=== PATIENT | male | born 1960 | race African-American/Black ===

== ENCOUNTER 2016-11-04 01:07 | Emergency (ER) | payer OTHER ==
[~2016-11-04] VITALS: Ht 175.3 cm; Wt 64.0 kg
[~2016-11-04 01:07] MED LIST: ASPI-1035 PO; CARV25TA47 PO; CLOP75TA2 PO; DIAZ5TAB4 PO; FAMO20TA8 PO; FOLI-43 PO; FURO80TA87 PO; IBUP-1510 PO; KDUR10 PO; LISI-650 PO; NITR0.4T3 PO
[2016-11-04] MEDS ORDERED: MORPHINE SULFATE 4 MG/ML CPJ (NOT FOR IM USE) IV ONE (02:15)
[2016-11-04] MEDS ORDERED: ONDANSETRON HCL 4MG/2ML VIAL IV ONE (02:15)
[2016-11-04 02:42] LABS: HEMATOCRIT. 29.1 % (42.0-52.0); HEMOGLOBIN. 9.4 g/dL (14.0-18.0); MEAN CORPUSCULAR HEMOGLOBIN 29.4 pg (28.0-32.0); MEAN CORPUSCULAR HGB CONC 32.4 g/dL (31.0-37.0); MEAN CORPUSCULAR VOLUME 90.8 fL (80.0-94.0); MEAN PLATELET VOLUME 7.3 fl (7.4-10.4); PLATELET 281 x1000/uL (130-400); WHITE BLOOD COUNT 2.8 x1000/uL (4.5-11.0)
[2016-11-04 02:45] LABS: DIFFERENTIAL COMMENT 1
[2016-11-04 02:50] LABS: ALBUMIN 3.2 g/dL (3.4-5.0); ANION GAP 15; CALCIUM 8.2 mg/dL (8.5-10.1); CARBON DIOXIDE 22 mEq/L (21-32); CHLORIDE 112 mEq/L (98-107); INDEX HEMOLYSI 2 (1-3); INDEX ICTERIC 1 (1-4); INDEX LIPEMIC 1 (1-3); LIPASE 120 IU/L (73-393); UREA NITROGEN BLOOD 9 mg/dL (7-21)
[2016-11-04 03:01] LABS: ALANINE AMINOTRANSFERASE 39 IU/L (13-61); eGFR > 60 mL/min (>60)
[2016-11-04 03:28] LABS: HYPOCHROMASIA 1+; PLATELET ESTIMATE NORMAL
[2016-11-04 03:29] LABS: ANISOCYTOSIS 1+
[2016-11-04 06:01] VITALS: BP 127/76
== END 2016-11-04 06:02 | disposition home or self-care (01) ==
LOC: ER 01:14
DX: R07.89 Other chest pain (principal); I10 Essential (primary) hypertension; E78.00 Pure hypercholesterolemia, unspecified; I50.9 Heart failure, unspecified; F17.200 Nicotine dependence, unspecified, uncomplicated; R56.9 Unspecified convulsions; I25.2 Old myocardial infarction; Z95.5 Presence of coronary angioplasty implant and graft; Z95.0 Presence of cardiac pacemaker; Z79.82 Long term (current) use of aspirin; Z88.8 Allergy status to other drugs, medicaments and biological substances
CPT/HCPCS: 36415; 71010; 80053; 83690; 84484; 85025; 93005; 96374; 96375; 99285; J2270; J2405

== ENCOUNTER 2017-02-04 00:40 | Inpatient (IN) | payer OTHER ==
[~2017-02-04] VITALS: Ht 175.3 cm; Wt 63.2 kg
[~2017-02-04 00:40] MED LIST changes: -ASPI-1035 PO; +ASPI-1159 PO; +CLOP75TA16 PO; -CLOP75TA2 PO; -IBUP-1510 PO; +IBUP-2030 PO; -NITR0.4T3 PO; +NITR0.4T49 PO
[2017-02-04] MEDS ORDERED: MORPHINE SULFATE 4 MG/ML CPJ (NOT FOR IM USE) IV STA (01:14)
[2017-02-04] MEDS ORDERED: ONDANSETRON HCL 4MG/2ML VIAL IV STA (01:14)
[2017-02-04] MEDS ORDERED: NITROGLYCERIN OINT 1GM/INCH UDPKT TD ONE (01:15)
[2017-02-04 01:37] LABS: BASOPHILS % 0.9 % (0.0-2.0); EOSINOPHILS % 1.5 % (0.0-5.0); HEMATOCRIT. 30.5 % (42.0-52.0); LYMPHOCYTES % 33.5 % (20.0-50.0); MEAN CORPUSCULAR HEMOGLOBIN 29.5 pg (28.0-32.0); MEAN CORPUSCULAR VOLUME 89.9 fL (80.0-94.0); MEAN PLATELET VOLUME 7.7 fl (7.4-10.4); MONOCYTES % 11.5 % (2.0-8.0); NEUTROPHILS % 52.6 % (40.0-76.0); PLATELET 153 x1000/uL (130-400); RED BLOOD CELL COUNT 3.39 mill/uL (4.7-6.1); RED CELL DISTRIBUTION WIDTH 17.9 % (11.6-14.6)
[2017-02-04 01:44] LABS: PROTHROMBIN TIME 10.8 sec
[2017-02-04 01:55] LABS: CHLORIDE 107 mEq/L (98-107)
[2017-02-04 01:56] LABS: CARBON DIOXIDE 25 mEq/L (21-32)
[2017-02-04 07:26] LABS: TROPONIN I 0.63 ng/mL (0.00-0.04)
[2017-02-04] MEDS ORDERED: ASPIRIN 81MG TABLET PO NR (08:00)
[2017-02-04] MEDS ORDERED: CLOPIDOGREL 75MG TABLET PO NR (08:00)
[2017-02-04] MEDS: CARVEDILOL 3.125 MG TABLET PO SCH ×2 (08:12→20:39)
[2017-02-04 08:25] LABS: T4 FREE 0.73 ng/dL (0.76-1.46)
[2017-02-04 08:26] LABS: TROPONIN I 0.62 ng/mL (0.00-0.04)
[2017-02-04] MEDS ORDERED: ACETAMINOPHEN 325MG TABLET PO PRN (08:45)
[2017-02-04] MEDS ORDERED: CLONIDINE 0.1MG TABLET PO PRN (08:45)
[2017-02-04] MEDS ORDERED: NA PHOS,M-B/NA PHOS,DI-BA ENEMA 118ML PR PRN (08:45)
[2017-02-04] MEDS ORDERED: DOCUSATE SODIUM 100MG CAPSULE PO PRN (08:45)
[2017-02-04] MEDS ORDERED: MAGNESIUM/ALUMINUM HYDROXIDE/SIMETHICONE 30ML UDC PO PRN (08:45)
[2017-02-04] MEDS ORDERED: HYDROCODONE/APAP 7.5/325MG 1 TAB TABLET PO PRN (08:45)
[2017-02-04] MEDS ORDERED: LORAZEPAM 2MG/ML CPJ IV PRN (08:45)
[2017-02-04] MEDS ORDERED: ENOXAPARIN 40MG/0.4ML SYR SUBCUT SCH (08:45)
[2017-02-04] MEDS ORDERED: GUAIFENESIN 200MG/10ML SUGAR FREE UDC PO PRN (08:45)
[2017-02-04] MEDS ORDERED: IPRATROPIUM/ALBUTEROL 0.5-3(2.5)MG/3ML NEB INH PRN (08:45)
[2017-02-04 08:59] LABS: CARBON DIOXIDE 20 mEq/L (21-32); CHLORIDE 109 mEq/L (98-107)
[2017-02-04] MEDS ORDERED: ASPIRIN 81MG EC TABLET PO SCH (09:00)
[2017-02-04] MEDS ORDERED: COR3 PO (12:06)
[2017-02-04] MEDS ORDERED: ATOR40TA70 PO (12:09)
[2017-02-04] MEDS ORDERED: ISOS10TA2 PO (12:09)
[2017-02-04] MEDS ORDERED: BUDE6.9H INH (12:13)
[2017-02-04] MEDS ORDERED: ALBU18HF2 IH (12:13)
[2017-02-04] MEDS ORDERED: ALBUTEROL 6.7GM HFA INHALER INH PRN (13:15)
[2017-02-04] MEDS ORDERED: MEDICATION NOT ON FORMULARY EA (Budesonide/Formoterol Fumarate (Symbicort 80/4.5 Mcg Inh INH PRN (13:15)
[2017-02-04] MEDS: HYDROMORPHONE HCL/PF 2MG/ML CPJ IV PRN ×2 (13:34→19:23)
[2017-02-04] MEDS: ENOXAPARIN 60MG/0.6ML SYR SUBCUT SCH ×2 (13:34→20:49)
[2017-02-04] MEDS: FUROSEMIDE 40MG TABLET PO SCH (14:16)
[2017-02-04] MEDS: LISINOPRIL 5MG TABLET PO SCH (14:16)
[2017-02-04] MEDS: ONDANSETRON HCL 4MG/2ML VIAL IV PRN ×2 (14:17→20:39)
[2017-02-04] MEDS: POTASSIUM CHLORIDE 20MEQ TABLET SR PO SCH (14:17)
[2017-02-04 16:38] LABS: CREATINE KINASE MB FRACTION 1.7 ng/mL (0.5-3.6)
[2017-02-04] MEDS: ATORVASTATIN CALCIUM 40MG TABLET PO SCH (20:39)
[2017-02-04] MEDS: ISOSORBIDE DINITRATE 10MG TABLET PO SCH (20:48)
[2017-02-04] MEDS ORDERED: ATORVASTATIN CALCIUM 40MG TABLET PO SCH (21:00)
[2017-02-04] MEDS: VITAMINS A AND D OINT TUBE TOP SCH (21:51)
[2017-02-04] MEDS: SODIUM CHLORIDE 0.45% 1,000 ML IV SCH (22:20)
[2017-02-04] MEDS: METOCLOPRAMIDE HCL 10MG/2ML VIAL IV SCH (22:21)
[2017-02-04 23:45] LABS: CREATINE KINASE MB FRACTION 1.7 ng/mL (0.5-3.6)
[2017-02-05] MEDS: BUDESONIDE 0.5MG/2ML NEB HHN SCH ×3 (01:03→21:14)
[2017-02-05] MEDS: HYDROMORPHONE HCL/PF 2MG/ML CPJ IV PRN ×2 (02:36→09:27)
[2017-02-05] MEDS: DIAZEPAM 5 MG TABLET PO PRN ×2 (02:44→09:28)
[2017-02-05 05:23] LABS: BASOPHILS % 0.1 % (0.0-2.0); HEMATOCRIT. 31.6 % (42.0-52.0); HEMOGLOBIN. 10.1 g/dL (14.0-18.0); MEAN CORPUSCULAR HEMOGLOBIN 29.2 pg (28.0-32.0); MEAN CORPUSCULAR VOLUME 91.2 fL (80.0-94.0); MEAN PLATELET VOLUME 8.3 fl (7.4-10.4); MONOCYTES % 9.1 % (2.0-8.0); NEUTROPHILS % 82.8 % (40.0-76.0); PLATELET 149 x1000/uL (130-400); RED BLOOD CELL COUNT 3.46 mill/uL (4.7-6.1); RED CELL DISTRIBUTION WIDTH 17.7 % (11.6-14.6)
[2017-02-05 05:52] LABS: CARBON DIOXIDE 21 mEq/L (21-32); CHLORIDE 99 mEq/L (98-107); CREATINE KINASE 117 IU/L (39-308); CREATINE KINASE MB FRACTION 1.9 ng/mL (0.5-3.6); HDL CHOLESTEROL 96 mg/dL (40-59); LDL CHOLESTEROL 167 mg/dL (5-100)
[2017-02-05] MEDS: METOCLOPRAMIDE HCL 10MG/2ML VIAL IV SCH ×3 (06:53→21:19)
[2017-02-05] MEDS: ALBUTEROL (0.083%) 2.5MG/3ML NEB HHN SCH ×3 (08:10→21:14)
[2017-02-05] MEDS ORDERED: FAMOTIDINE 20MG TABLET PO SCH (09:00)
[2017-02-05] MEDS ORDERED: CLOPIDOGREL 75MG TABLET PO SCH (09:00)
[2017-02-05] MEDS ORDERED: ASPIRIN 81MG TABLET PO SCH (09:00)
[2017-02-05] MEDS ORDERED: FAMOTIDINE(NEO) 1MG/ML SUSP PO SCH (09:00)
[2017-02-05] MEDS: CARVEDILOL 3.125 MG TABLET PO SCH ×2 (09:16→21:19)
[2017-02-05] MEDS: POTASSIUM CHLORIDE 20MEQ TABLET SR PO SCH (09:16)
[2017-02-05] MEDS: FUROSEMIDE 40MG TABLET PO SCH (09:16)
[2017-02-05] MEDS: FOLIC ACID 1MG TABLET PO SCH (09:16)
[2017-02-05] MEDS: ISOSORBIDE DINITRATE 10MG TABLET PO SCH ×2 (09:16→16:44)
[2017-02-05] MEDS: ENOXAPARIN 60MG/0.6ML SYR SUBCUT SCH (09:17)
[2017-02-05] MEDS: LISINOPRIL 5MG TABLET PO SCH (09:17)
[2017-02-05] MEDS: VITAMINS A AND D OINT TUBE TOP SCH (09:27)
[2017-02-05] MEDS: PANTOPRAZOLE SODIUM 40 MG/VIAL IV SCH (10:35)
[2017-02-05] MEDS: SODIUM CHLORIDE 0.45% 1,000 ML IV SCH (13:23)
[2017-02-05] MEDS: ONDANSETRON HCL 4MG/2ML VIAL IV PRN (13:23)
[2017-02-05] MEDS: ATORVASTATIN CALCIUM 40MG TABLET PO SCH (21:18)
[2017-02-06] MEDS: SODIUM CHLORIDE 0.45% 1,000 ML IV SCH ×2 (02:31→15:01)
[2017-02-06] MEDS: ALBUTEROL (0.083%) 2.5MG/3ML NEB HHN SCH ×4 (03:03→20:55)
[2017-02-06] MEDS: METOCLOPRAMIDE HCL 10MG/2ML VIAL IV SCH ×3 (05:23→21:39)
[2017-02-06] MEDS: DIAZEPAM 5 MG TABLET PO PRN ×2 (05:32→21:39)
[2017-02-06] MEDS: LISINOPRIL 5MG TABLET PO SCH (09:00)
[2017-02-06] MEDS: BUDESONIDE 0.5MG/2ML NEB HHN SCH ×2 (09:14→20:55)
[2017-02-06] MEDS: PANTOPRAZOLE SODIUM 40 MG/VIAL IV SCH (09:19)
[2017-02-06] MEDS: POTASSIUM CHLORIDE 20MEQ TABLET SR PO SCH (09:19)
[2017-02-06] MEDS: FUROSEMIDE 40MG TABLET PO SCH (09:20)
[2017-02-06] MEDS: FOLIC ACID 1MG TABLET PO SCH (09:20)
[2017-02-06] MEDS: ISOSORBIDE DINITRATE 10MG TABLET PO SCH ×2 (09:20→17:00)
[2017-02-06] MEDS: CARVEDILOL 3.125 MG TABLET PO SCH ×2 (09:20→21:40)
[2017-02-06] MEDS: VITAMINS A AND D OINT TUBE TOP SCH (09:20)
[2017-02-06] MEDS: HYDROMORPHONE HCL/PF 2MG/ML CPJ IV PRN (09:25)
[2017-02-06] MEDS: ONDANSETRON HCL 4MG/2ML VIAL IV PRN (12:21)
[2017-02-06] MEDS ORDERED: REGADENOSON 0.4 MG/5 ML IV ONE (16:30)
[2017-02-06] MEDS: ATORVASTATIN CALCIUM 40MG TABLET PO SCH (21:39)
[2017-02-07] MEDS: ALBUTEROL (0.083%) 2.5MG/3ML NEB HHN SCH (00:50)
[2017-02-07] MEDS: SODIUM CHLORIDE 0.45% 1,000 ML IV SCH (03:59)
[2017-02-07] MEDS: HYDROMORPHONE HCL/PF 2MG/ML CPJ IV PRN (04:14)
[2017-02-07] MEDS: METOCLOPRAMIDE HCL 10MG/2ML VIAL IV SCH (05:23)
[2017-02-07] MEDS: CARVEDILOL 3.125 MG TABLET PO SCH (08:20)
[2017-02-07] MEDS: ISOSORBIDE DINITRATE 10MG TABLET PO SCH (08:20)
[2017-02-07] MEDS: LISINOPRIL 5MG TABLET PO SCH (08:21)
[2017-02-07] MEDS ORDERED: REGADENOSON 0.4 MG/5 ML IV ONE (09:02)
[2017-02-07] MEDS: POTASSIUM CHLORIDE 20MEQ TABLET SR PO SCH (11:02)
[2017-02-07] MEDS: FOLIC ACID 1MG TABLET PO SCH (11:02)
[2017-02-07] MEDS: FUROSEMIDE 40MG TABLET PO SCH (11:02)
[2017-02-07] MEDS: PANTOPRAZOLE SODIUM 40 MG/VIAL IV SCH (11:03)
[2017-02-07] MEDS: VITAMINS A AND D OINT TUBE TOP SCH (11:03)
[2017-02-07 11:50] VITALS: BP 126/86
[2017-07-02] MEDS ORDERED: METO-539 PO (23:23)
== END 2017-02-07 11:50 | disposition home or self-care (01) | DRG 206 ==
LOC: ER 00:40 → 5WST 06:02 → EDBEDREQ 06:20 → ENRESERV 07:00
PROVIDERS: ADMIT Internal Medicine; ATTEND Internal Medicine
DX: M94.0 Chondrocostal junction syndrome [Tietze] (principal); R04.2 Hemoptysis; I25.5 Ischemic cardiomyopathy; D64.9 Anemia, unspecified; E78.5 Hyperlipidemia, unspecified; F10.10 Alcohol abuse, uncomplicated; F17.200 Nicotine dependence, unspecified, uncomplicated; I11.0 Hypertensive heart disease with heart failure; I50.9 Heart failure, unspecified; F15.90 Other stimulant use, unspecified, uncomplicated; R10.9 Unspecified abdominal pain; R11.2 Nausea with vomiting, unspecified; I25.10 Atherosclerotic heart disease of native coronary artery without angina pectoris; Z79.51 Long term (current) use of inhaled steroids; Z79.899 Other long term (current) drug therapy; Z95.5 Presence of coronary angioplasty implant and graft; Z95.810 Presence of automatic (implantable) cardiac defibrillator; I25.2 Old myocardial infarction; Z88.4 Allergy status to anesthetic agent; Z88.8 Allergy status to other drugs, medicaments and biological substances; Z79.82 Long term (current) use of aspirin
CPT/HCPCS: 36415; 71010; 74000; 78452; 80048; 80053; 80061; 82550; 82553; 83036; 83880; 84439; 84443; 84484; 85025; 85379; 85610; 93005; 93017; 93306; 94640; 96374; 96375; 99285; A9500; C9113; J1170; J1650; J2270; J2405; J2765; J2785; J7611; J7626

== ENCOUNTER 2017-02-07 23:08 | Inpatient (IN) | payer OTHER ==
[~2017-02-07] VITALS: Ht 170.2 cm; Wt 72.1 kg
[~2017-02-07 23:08] MED LIST changes: +ALBU18HF2 IH; +ATOR40TA70 PO; +BUDE6.9H INH; +COR3 PO; +ISOS10TA2 PO
[2017-02-07] MEDS ORDERED: IPRATROPIUM BROMIDE (0.02%) 0.5MG/2.5ML NEB HHN STA (23:47)
[2017-02-07] MEDS ORDERED: METHYLPREDNISOLONE SOD SUCC 125 MG/2 ML VIAL IV STA (23:47)
[2017-02-07] MEDS ORDERED: ALBUTEROL (0.083%) 2.5MG/3ML NEB HHN STA (23:47)
[2017-02-08 00:13] LABS: BASOPHILS % 0.1 % (0.0-2.0); EOSINOPHILS % 0.1 % (0.0-5.0); HEMOGLOBIN. 9.2 g/dL (14.0-18.0); LYMPHOCYTES % 7.7 % (20.0-50.0); MEAN CORPUSCULAR HEMOGLOBIN 29.3 pg (28.0-32.0); MEAN PLATELET VOLUME 8.1 fl (7.4-10.4); MONOCYTES % 11.6 % (2.0-8.0); NEUTROPHILS % 80.5 % (40.0-76.0); PLATELET 123 x1000/uL (130-400); RED BLOOD CELL COUNT 3.14 mill/uL (4.7-6.1); RED CELL DISTRIBUTION WIDTH 17.5 % (11.6-14.6)
[2017-02-08 00:20] LABS: INR 1.1; PROTHROMBIN TIME 11.7 sec
[2017-02-08 00:27] LABS: CARBON DIOXIDE 25 mEq/L (21-32); CHLORIDE 97 mEq/L (98-107)
[2017-02-08] MEDS ORDERED: ASPIRIN 325MG TABLET PO ONE (00:45)
[2017-02-08 10:06] LABS: HEMATOCRIT 29.8 % (42.0-52.0); HEMOGLOBIN 9.7 g/dL (14.0-18.0); MEAN CORPUSCULAR HEMOGLOBIN 29.5 pg (28.0-32.0); MEAN CORPUSCULAR VOLUME 90.4 fL (80.0-94.0); PLATELET 128 x1000/uL (130-400); RED CELL DISTRIBUTION WIDTH 17.9 % (11.6-14.6)
[2017-02-08 10:25] LABS: CARBON DIOXIDE 23 mEq/L (21-32); CHLORIDE 95 mEq/L (98-107)
[2017-02-08] MEDS ORDERED: FUROSEMIDE 80MG TABLET PO SCH (14:30)
[2017-02-08] MEDS ORDERED: ALBUTEROL 6.7GM HFA INHALER INH PRN (14:30)
[2017-02-08] MEDS ORDERED: LORAZEPAM 0.5MG TABLET PO PRN (14:30)
[2017-02-08] MEDS ORDERED: FAMOTIDINE 20MG TABLET PO SCH ×2 (14:30→21:00)
[2017-02-08] MEDS ORDERED: FAMOTIDINE(NEO) 1MG/ML SUSP PO SCH (14:30)
[2017-02-08] MEDS ORDERED: DIAZEPAM 5 MG TABLET PO PRN (14:30)
[2017-02-08] MEDS ORDERED: POTASSIUM CHLORIDE 20MEQ TABLET SR PO SCH (14:30)
[2017-02-08] MEDS ORDERED: DIPHENHYDRAMINE 50MG/ML VIAL IV PRN (14:30)
[2017-02-08] MEDS ORDERED: ONDANSETRON HCL 4MG/2ML VIAL IV PRN (14:30)
[2017-02-08] MEDS ORDERED: ACETAMINOPHEN 650MG SUPP PR PRN (14:30)
[2017-02-08] MEDS ORDERED: NA PHOS,M-B/NA PHOS,DI-BA ENEMA 118ML PR PRN (14:30)
[2017-02-08] MEDS ORDERED: GUAIFENESIN 200MG/10ML SUGAR FREE UDC PO PRN (14:30)
[2017-02-08] MEDS ORDERED: ACETAMINOPHEN 650MG/20.3ML UDC GT PRN (14:30)
[2017-02-08] MEDS ORDERED: IBUPROFEN 800MG TABLET PO PRN (14:30)
[2017-02-08] MEDS ORDERED: NITROGLYCERIN 0.4MG TABLET SL SL PRN (14:30)
[2017-02-08] MEDS ORDERED: ACETAMINOPHEN 325MG TABLET PO PRN (14:30)
[2017-02-08] MEDS ORDERED: IPRATROPIUM/ALBUTEROL 0.5-3(2.5)MG/3ML NEB INH PRN (14:30)
[2017-02-08] MEDS ORDERED: ENOXAPARIN 40MG/0.4ML SYR SUBCUT SCH (15:00)
[2017-02-08] MEDS: CLOPIDOGREL 75MG TABLET PO SCH (15:01)
[2017-02-08] MEDS: ASPIRIN 81MG EC TABLET PO SCH (15:02)
[2017-02-08] MEDS: FOLIC ACID 1MG TABLET PO SCH (15:02)
[2017-02-08] MEDS: LISINOPRIL 5MG TABLET PO SCH (15:02)
[2017-02-08] MEDS: FUROSEMIDE 40MG/4ML VIAL IV SCH (15:03)
[2017-02-08] MEDS: ISOSORBIDE DINITRATE 10MG TABLET PO SCH ×2 (15:03→23:30)
[2017-02-08] MEDS: CARVEDILOL 3.125 MG TABLET PO SCH ×2 (15:03→23:57)
[2017-02-08] MEDS: HYDROCODONE/ACETAMINOPHEN 5/325MG TABLET PO PRN ×2 (15:04→22:32)
[2017-02-08 15:26] LABS: ETHANOL BLOOD < 10 mg/dL; HDL CHOLESTEROL 65 mg/dL (40-59); LDL CHOLESTEROL 175 mg/dL (5-100)
[2017-02-08 17:53] LABS: CLARITY URINE CLEAR (CLEAR); COLOR URINE YELLOW (YELLOW); KETONES URINE NEGATIVE (NEGATIVE); LEUKOCYTE ESTERASE URINE NEGATIVE (NEGATIVE); NITRITE URINE NEGATIVE (NEGATIVE); OCCULT BLOOD URINE NEGATIVE (NEGATIVE); PH URINE 6.5 (4.5-8.0); PROTEIN URINE NEGATIVE (NEGATIVE); SPECIFIC GRAVITY URINE 1.008 (1.005-1.030)
[2017-02-08] MEDS: METOCLOPRAMIDE HCL 10MG/2ML VIAL IV SCH ×2 (17:55→23:58)
[2017-02-08 18:10] LABS: *AMPHETAMINES SCREEN URINE NEGATIVE (NEGATIVE); *BARBITURATES SCREEN URINE NEGATIVE (NEGATIVE); *COCAINE SCREEN URINE NEGATIVE (NEGATIVE); CANNABINOID URINE SCREEN NEGATIVE (NEGATIVE); METHADONE URINE SCREEN NEGATIVE (NEGATIVE); OPIATES URINE SCREEN PRESUMTIVE POSITIVE (NEGATIVE); PHENCYCLIDINE URINE SCREEN NEGATIVE (NEGATIVE)
[2017-02-08 18:45] LABS: *BENZODIAZEPINES SCREEN URINE PRESUMTIVE POSITIVE (NEGATIVE)
[2017-02-08] MEDS ORDERED: ATORVASTATIN CALCIUM 40MG TABLET PO SCH (21:00)
[2017-02-08] MEDS: SODIUM CHLORIDE 0.9% INJ 3ML FLUSH IVF SCH (22:34)
[2017-02-09 06:44] LABS: HEMATOCRIT. 28.2 % (42.0-52.0); HEMOGLOBIN. 9.2 g/dL (14.0-18.0); MEAN CORPUSCULAR HEMOGLOBIN 29.4 pg (28.0-32.0); MEAN CORPUSCULAR VOLUME 90.2 fL (80.0-94.0); MEAN PLATELET VOLUME 8.7 fl (7.4-10.4); PLATELET 120 x1000/uL (130-400); RED BLOOD CELL COUNT 3.13 mill/uL (4.7-6.1); RED CELL DISTRIBUTION WIDTH 18.4 % (11.6-14.6)
[2017-02-09 06:48] LABS: CARBON DIOXIDE 25 mEq/L (21-32); CHLORIDE 98 mEq/L (98-107); HDL CHOLESTEROL 55 mg/dL (40-59); LDL CHOLESTEROL 134 mg/dL (5-100)
[2017-02-09] MEDS: SODIUM CHLORIDE 0.9% INJ 3ML FLUSH IVF SCH (06:50)
[2017-02-09] MEDS: METOCLOPRAMIDE HCL 10MG/2ML VIAL IV SCH (06:50)
[2017-02-09] MEDS: HYDROCODONE/ACETAMINOPHEN 5/325MG TABLET PO PRN (07:04)
[2017-02-09] MEDS ORDERED: POTASSIUM CHLORIDE 20MEQ TABLET SR PO SCH (08:00)
[2017-02-09] MEDS: FUROSEMIDE 40MG/4ML VIAL IV SCH (08:18)
[2017-02-09] MEDS: CLOPIDOGREL 75MG TABLET PO SCH (08:18)
[2017-02-09] MEDS: ASPIRIN 81MG EC TABLET PO SCH (08:18)
[2017-02-09] MEDS: FOLIC ACID 1MG TABLET PO SCH (08:18)
[2017-02-09] MEDS: CARVEDILOL 3.125 MG TABLET PO SCH (08:19)
[2017-02-09] MEDS: ISOSORBIDE DINITRATE 10MG TABLET PO SCH (08:20)
[2017-02-09] MEDS: LISINOPRIL 5MG TABLET PO SCH (08:21)
[2017-02-09 12:00] VITALS: BP 98/20
[2017-02-09 12:57] LABS: PLATELET ESTIMATE SLIGHTLY DECREASED
[2017-02-10] MEDS ORDERED: POTASSIUM CHLORIDE 20MEQ TABLET SR PO SCH (09:00)
[2017-07-02] MEDS ORDERED: METO-539 PO (23:23)
== END 2017-02-09 12:24 | disposition short-term general hospital (02) | DRG 392 ==
LOC: ER 23:16 → 5WST 02-08 04:52 → EDBEDREQ 02-08 05:08 → ENRESERV 02-08 06:56 → 5WST 02-08 08:20
PROVIDERS: ADMIT Family Medicine; ATTEND Family Medicine
DX: K21.9 Gastro-esophageal reflux disease without esophagitis (principal); E87.1 Hypo-osmolality and hyponatremia; I25.10 Atherosclerotic heart disease of native coronary artery without angina pectoris; D64.9 Anemia, unspecified; D69.6 Thrombocytopenia, unspecified; E87.6 Hypokalemia; F10.10 Alcohol abuse, uncomplicated; F17.200 Nicotine dependence, unspecified, uncomplicated; F12.90 Cannabis use, unspecified, uncomplicated; I25.5 Ischemic cardiomyopathy; I11.0 Hypertensive heart disease with heart failure; I50.9 Heart failure, unspecified; J45.909 Unspecified asthma, uncomplicated; Z88.9 Allergy status to unspecified drugs, medicaments and biological substances; Z93.0 Tracheostomy status; Z95.5 Presence of coronary angioplasty implant and graft; I25.2 Old myocardial infarction; Z79.82 Long term (current) use of aspirin; Z79.899 Other long term (current) drug therapy; Z86.69 Personal history of other diseases of the nervous system and sense organs; Z71.6 Tobacco abuse counseling; Z86.19 Personal history of other infectious and parasitic diseases; Z95.810 Presence of automatic (implantable) cardiac defibrillator
CPT/HCPCS: 36415; 71010; 80053; 80061; 80305; 81003; 83690; 83880; 84484; 85025; 85027; 85379; 85610; 93005; 94644; 96374; 99291; G0482; J1650; J1940; J2765; J2930; J7611; J7620

== ENCOUNTER 2017-03-23 21:13 | Emergency (ER) | payer OTHER ==
[~2017-03-23] VITALS: Ht 182.9 cm; Wt 66.0 kg
[~2017-03-23 21:13] MED LIST changes: -CARV25TA47 PO; -CLOP75TA16 PO; +CLOP75TA2 PO; +IBUP-1510 PO; -IBUP-2030 PO; +NITR0.4T3 PO; -NITR0.4T49 PO
[2017-03-23] MEDS ORDERED: NITROGLYCERIN 0.4MG TABLET SL SL ONE (22:45)
[2017-03-23] MEDS ORDERED: MORPHINE SULFATE 4 MG/ML CPJ (NOT FOR IM USE) IV ONE (22:45)
[2017-03-23 22:48] VITALS: BP 120/77
[2017-03-23 22:52] LABS: HEMATOCRIT. 25.7 % (42.0-52.0); HEMOGLOBIN. 8.5 g/dL (14.0-18.0); MEAN CORPUSCULAR HEMOGLOBIN 29.3 pg (28.0-32.0); MEAN CORPUSCULAR VOLUME 89.3 fL (80.0-94.0); MEAN PLATELET VOLUME 8.1 fl (7.4-10.4); PLATELET 76 x1000/uL (130-400); RED BLOOD CELL COUNT 2.88 mill/uL (4.7-6.1); RED CELL DISTRIBUTION WIDTH 20.3 % (11.6-14.6)
[2017-03-23 23:00] LABS: CARBON DIOXIDE 25 mEq/L (21-32); CHLORIDE 105 mEq/L (98-107)
[2017-03-23 23:05] LABS: TROPONIN I 0.24 ng/mL (0.00-0.04)
[2017-03-23] MEDS ORDERED: POTASSIUM CHLORIDE 20MEQ TABLET SR PO ONE (23:15)
[2017-03-23 23:19] LABS: PLATELET ESTIMATE DECREASED
== END 2017-03-23 23:09 | disposition short-term general hospital (02) ==
LOC: ER 22:05
DX: I21.3 ST elevation (STEMI) myocardial infarction of unspecified site (principal); I42.6 Alcoholic cardiomyopathy; J45.909 Unspecified asthma, uncomplicated; I11.9 Hypertensive heart disease without heart failure; I73.9 Peripheral vascular disease, unspecified; I25.10 Atherosclerotic heart disease of native coronary artery without angina pectoris; I25.2 Old myocardial infarction; G40.909 Epilepsy, unspecified, not intractable, without status epilepticus; E88.09 Other disorders of plasma-protein metabolism, not elsewhere classified; E83.51 Hypocalcemia; E78.5 Hyperlipidemia, unspecified; D72.819 Decreased white blood cell count, unspecified; D64.9 Anemia, unspecified; F12.10 Cannabis abuse, uncomplicated; E87.6 Hypokalemia; R55 Syncope and collapse; Z87.891 Personal history of nicotine dependence; Z95.810 Presence of automatic (implantable) cardiac defibrillator; Z95.5 Presence of coronary angioplasty implant and graft; Z95.0 Presence of cardiac pacemaker; Z79.82 Long term (current) use of aspirin; Z88.8 Allergy status to other drugs, medicaments and biological substances
CPT/HCPCS: 36415; 80053; 83036; 83880; 84484; 85025; 96374; 99291; J2270

== ENCOUNTER 2017-07-02 09:37 | Observation (INO) | payer OTHER ==
[~2017-07-02] VITALS: Ht 175.3 cm; Wt 59.0 kg
[~2017-07-02 09:37] MED LIST changes: +CLOP75TA16 PO; -CLOP75TA2 PO; -IBUP-1510 PO; +IBUP-2030 PO; -NITR0.4T3 PO; +NITR0.4T49 PO
[2017-07-02 16:27] LABS: CARBON DIOXIDE 18 mEq/L (21-32); CHLORIDE 98 mEq/L (98-107)
[2017-07-02 17:32] LABS: BASOPHILS % 0.4 % (0.0-2.0); EOSINOPHILS % 0.3 % (0.0-5.0); HEMATOCRIT. 28.1 % (42.0-52.0); MEAN CORPUSCULAR HEMOGLOBIN 29.5 pg (28.0-32.0); MEAN CORPUSCULAR VOLUME 92.4 fL (80.0-94.0); MONOCYTES % 10.7 % (2.0-8.0); NEUTROPHILS % 75.6 % (40.0-76.0); PLATELET 92 x1000/uL (130-400); RED BLOOD CELL COUNT 3.04 mill/uL (4.7-6.1); RED CELL DISTRIBUTION WIDTH 23.2 % (11.6-14.6)
[2017-07-02] MEDS ORDERED: MORPHINE SULFATE 4 MG/ML CPJ (NOT FOR IM USE) IV ONE (18:00)
[2017-07-02 18:02] LABS: PLATELET ESTIMATE DECREASED
[2017-07-02] MEDS ORDERED: MORPHINE SULFATE 10 MG/ML CPJ IV NR (18:27)
[2017-07-02 20:10] VITALS: BP 129/84
[2017-07-02] MEDS ORDERED: ASPIRIN 81MG TABLET PO NR (20:15)
[2017-07-02] MEDS ORDERED: POTASSIUM CHLORIDE 20MEQ TABLET SR PO NR (20:15)
[2017-07-02] MEDS ORDERED: TEMAZEPAM 15MG CAPSULE PO PRN (21:00)
[2017-07-02 21:24] LABS: HEMATOCRIT. 29.3 % (42.0-52.0); HEMOGLOBIN. 9.4 g/dL (14.0-18.0); MEAN CORPUSCULAR HEMOGLOBIN 29.6 pg (28.0-32.0); MEAN CORPUSCULAR VOLUME 91.9 fL (80.0-94.0); MEAN PLATELET VOLUME 8.5 fl (7.4-10.4); PLATELET 103 x1000/uL (130-400); RED BLOOD CELL COUNT 3.19 mill/uL (4.7-6.1); RED CELL DISTRIBUTION WIDTH 23.3 % (11.6-14.6)
[2017-07-02] MEDS: PANTOPRAZOLE SODIUM 40 MG/VIAL IV SCH (22:01)
[2017-07-02] MEDS ORDERED: IOHEXOL-300 100 ML BOTTLE ONE (22:02)
[2017-07-02] MEDS: CLOPIDOGREL 75MG TABLET PO SCH (22:03)
[2017-07-02] MEDS: MORPHINE SULFATE 2 MG/ML CPJ (NOT FOR IM USE) IV PRN (22:04)
[2017-07-02 22:08] LABS: PLATELET ESTIMATE DECREASED
[2017-07-02] MEDS ORDERED: ALBUTEROL 6.7GM HFA INHALER INH PRN (23:00)
[2017-07-02] MEDS ORDERED: LEVETIRACETAM 500MG TABLET PO SCH (23:00)
[2017-07-02] MEDS ORDERED: CARVEDILOL 3.125 MG TABLET PO SCH (23:00)
[2017-07-02] MEDS ORDERED: NITROGLYCERIN 0.4MG TABLET SL SL PRN (23:00)
[2017-07-02] MEDS ORDERED: PANT40TA4 PO (23:23)
[2017-07-02] MEDS ORDERED: CHLO25CA10 PO (23:23)
[2017-07-02] MEDS ORDERED: METO50TA5 PO (23:23)
[2017-07-02] MEDS ORDERED: LORA1TAB PO (23:23)
[2017-07-02] MEDS ORDERED: P20 PO (23:23)
[2017-07-02] MEDS ORDERED: RANO500T3 PO (23:23)
[2017-07-02] MEDS ORDERED: LEVE500T19 PO (23:23)
[2017-07-02] MEDS ORDERED: ALBUTEROL (0.083%) 2.5MG/3ML NEB HHN PRN (23:45)
[2017-07-03] VITALS: BP 128/74
[2017-07-03 04:00] VITALS: BP 128/69
[2017-07-03] MEDS: MORPHINE SULFATE 2 MG/ML CPJ (NOT FOR IM USE) IV PRN (04:04)
[2017-07-03 06:43] LABS: INR 1.1; PARTIAL THROMBOPLASTIN TIME 25.5 sec (23.4-31.0); PROTHROMBIN TIME 11.3 sec (9.4-11.6)
[2017-07-03 06:48] LABS: BASOPHILS % 0.5 % (0.0-2.0); EOSINOPHILS % 1.8 % (0.0-5.0); HEMATOCRIT. 26.7 % (42.0-52.0); HEMOGLOBIN. 8.6 g/dL (14.0-18.0); LYMPHOCYTES % 28.1 % (20.0-50.0); MEAN CORPUSCULAR HEMOGLOBIN 29.9 pg (28.0-32.0); MEAN CORPUSCULAR VOLUME 92.2 fL (80.0-94.0); MEAN PLATELET VOLUME 8.7 fl (7.4-10.4); MONOCYTES % 8.5 % (2.0-8.0); NEUTROPHILS % 61.1 % (40.0-76.0); PLATELET 99 x1000/uL (130-400); RED BLOOD CELL COUNT 2.89 mill/uL (4.7-6.1); RED CELL DISTRIBUTION WIDTH 23.4 % (11.6-14.6)
[2017-07-03 07:35] LABS: CARBON DIOXIDE 23 mEq/L (21-32); CHLORIDE 101 mEq/L (98-107); LDL CHOLESTEROL 170 mg/dL (5-100)
[2017-07-03 07:44] LABS: HDL CHOLESTEROL 82 mg/dL (40-59)
[2017-07-03 08:00] VITALS: BP 90/54
[2017-07-03 08:29] LABS: AMMONIA 69 uMol/L (<32)
[2017-07-03] MEDS ORDERED: ASPIRIN 81MG TABLET PO SCH (09:00)
[2017-07-03] MEDS ORDERED: CARVEDILOL 3.125 MG TABLET PO SCH (09:00)
[2017-07-03] MEDS ORDERED: LEVETIRACETAM 500MG TABLET PO SCH (09:00)
[2017-07-03] MEDS: CLOPIDOGREL 75MG TABLET PO SCH (09:13)
[2017-07-03] MEDS: PANTOPRAZOLE SODIUM 40 MG/VIAL IV SCH (09:13)
[2017-07-03 10:00] LABS: HEPATITIS B SURFACE ANTIGEN NEGATIVE
[2017-07-03 10:28] LABS: HEPATITIS B CORE AB IGM NEGATIVE
[2017-07-03 10:30] LABS: HEPATITIS A AB IGM NEGATIVE (NEGATIVE)
[2017-07-03 12:00] VITALS: BP 91/61
[2017-07-03 16:00] VITALS: BP 98/68
[2017-07-03] MEDS ORDERED: ATORVASTATIN CALCIUM 40MG TABLET PO SCH (21:00)
== END 2017-07-03 18:30 | disposition home or self-care (01) ==
LOC: ER 09:49 → 7WST 17:21 → INTOOBSV 17:21 → EDBEDREQ 17:23 → ENRESERV 18:30
PROVIDERS: ADMIT Internal Medicine; ATTEND Internal Medicine
DX: R07.89 Other chest pain (principal); I25.5 Ischemic cardiomyopathy; I25.118 Atherosclerotic heart disease of native coronary artery with other forms of angina pectoris; I10 Essential (primary) hypertension; K92.2 Gastrointestinal hemorrhage, unspecified; D64.9 Anemia, unspecified; B20 Human immunodeficiency virus [HIV] disease; F12.90 Cannabis use, unspecified, uncomplicated; J44.9 Chronic obstructive pulmonary disease, unspecified; F17.200 Nicotine dependence, unspecified, uncomplicated; Z95.5 Presence of coronary angioplasty implant and graft; Z95.810 Presence of automatic (implantable) cardiac defibrillator
CPT/HCPCS: 36415; 71010; 74177; 80053; 80061; 82140; 84443; 84484; 85025; 85044; 85610; 85730; 93005; 93306; 96374; 96375; 96376; 99285; C9113; G0378; J2270; Q9967; 86705; 86709; 86803; 87340

== ENCOUNTER 2017-07-22 02:21 | Emergency (ER) | payer OTHER ==
[~2017-07-22] VITALS: Ht 175.3 cm; Wt 59.0 kg
[~2017-07-22 02:21] MED LIST changes: +CHLO25CA10 PO; +LEVE500T19 PO; +LORA1TAB PO; +METO-539 PO; +P20 PO; +PANT40TA4 PO; +RANO500T3 PO
[2017-07-22] MEDS ORDERED: ONDANSETRON HCL 4MG/2ML VIAL IV NR (04:05)
[2017-07-22] MEDS ORDERED: MORPHINE SULFATE 2 MG/ML CPJ (NOT FOR IM USE) IV NR (04:05)
[2017-07-22] MEDS ORDERED: NITROGLYCERIN OINT 1GM/INCH UDPKT TD NR (04:05)
[2017-07-22 04:12] LABS: HEMATOCRIT. 26.6 % (42.0-52.0); HEMOGLOBIN. 8.3 g/dL (14.0-18.0); MEAN CORPUSCULAR VOLUME 93.2 fL (80.0-94.0); MEAN PLATELET VOLUME 7.6 fl (7.4-10.4); PLATELET 157 x1000/uL (130-400); RED BLOOD CELL COUNT 2.86 mill/uL (4.7-6.1); RED CELL DISTRIBUTION WIDTH 22.5 % (11.6-14.6)
[2017-07-22 04:24] LABS: CARBON DIOXIDE 25 mEq/L (21-32); CHLORIDE 111 mEq/L (98-107); TROPONIN I 0.23 ng/mL (0.00-0.04)
[2017-07-22 06:49] LABS: PLATELET ESTIMATE NORMAL
[2017-07-22 08:55] VITALS: BP 152/82
== END 2017-07-22 11:15 | disposition home or self-care (01) ==
LOC: ER 02:24
DX: R07.9 Chest pain, unspecified (principal); R11.10 Vomiting, unspecified; R19.7 Diarrhea, unspecified; I25.2 Old myocardial infarction; I10 Essential (primary) hypertension; J44.9 Chronic obstructive pulmonary disease, unspecified; I25.10 Atherosclerotic heart disease of native coronary artery without angina pectoris; Z88.8 Allergy status to other drugs, medicaments and biological substances; Z79.82 Long term (current) use of aspirin; Z79.01 Long term (current) use of anticoagulants
CPT/HCPCS: 36415; 71010; 80048; 83880; 84484; 85025; 85379; 93005; 96374; 96375; 99285; J2270; J2405

== ENCOUNTER 2018-06-07 23:35 | Inpatient (IN) | payer OTHER ==
[~2018-06-07] VITALS: Ht 170.2 cm; Wt 62.6 kg
[2018-06-08] MEDS ORDERED: MORPHINE SULFATE 4 MG/ML CPJ (NOT FOR IM USE) IV STA ×2 (00:11→03:04)
[2018-06-08] MEDS ORDERED: ONDANSETRON HCL 4MG/2ML INJ IV STA ×2 (00:11→03:04)
[2018-06-08 01:36] LABS: BASOPHILS % 0.3 % (0.0-2.0); HEMATOCRIT. 34.3 % (42.0-52.0); HEMOGLOBIN. 11.2 g/dL (14.0-18.0); LYMPHOCYTES % 28.5 % (20.0-50.0); MEAN CORPUSCULAR HEMOGLOBIN 31.8 pg (28.0-32.0); MEAN CORPUSCULAR VOLUME 97.2 fL (80.0-94.0); MEAN PLATELET VOLUME 8.4 fl (7.4-10.4); MONOCYTES % 11.3 % (2.0-8.0); NEUTROPHILS % 58.9 % (40.0-76.0); PLATELET 129 x1000/uL (130-400); RED BLOOD CELL COUNT 3.53 mill/uL (4.7-6.1); RED CELL DISTRIBUTION WIDTH 16.1 % (11.6-14.6)
[2018-06-08 01:40] LABS: CHLORIDE 109 mEq/L (98-107)
[2018-06-08 01:54] LABS: D-DIMER 0.59 mg/L FEU (<0.50); PARTIAL THROMBOPLASTIN TIME 27.8 sec (23.4-31.0)
[2018-06-08 01:55] LABS: ETHANOL BLOOD 327 mg/dL
[2018-06-08] MEDS ORDERED: ENOXAPARIN 60MG/0.6ML SYR SUBCUT ONE (04:15)
[2018-06-08] MEDS ORDERED: SPIR25TA6 PO (09:40)
[2018-06-08] MEDS ORDERED: CARV12.545 PO (09:40)
[2018-06-08] MEDS ORDERED: MEGE40TA27 PO (09:40)
[2018-06-08] MEDS ORDERED: THIA100T13 PO (09:40)
[2018-06-08] MEDS ORDERED: FURO40TA5 PO (09:40)
[2018-06-08 10:00] VITALS: BP 135/75
[2018-06-08] MEDS ORDERED: MAGNESIUM/ALUMINUM HYDROXIDE/SIMETHICONE 30ML UDC PO PRN (10:00)
[2018-06-08] MEDS ORDERED: HYDROCODONE/ACETAMINOPHEN 5/325MG TABLET PO PRN (10:00)
[2018-06-08] MEDS ORDERED: CLONIDINE 0.1MG TABLET PO PRN (10:00)
[2018-06-08] MEDS ORDERED: NA PHOS,M-B/NA PHOS,DI-BA ENEMA 118ML PR PRN (10:00)
[2018-06-08] MEDS ORDERED: ACETAMINOPHEN 650MG SUPP PR PRN (10:00)
[2018-06-08] MEDS ORDERED: ACETAMINOPHEN 325MG TABLET PO PRN (10:00)
[2018-06-08] MEDS ORDERED: IPRATROPIUM/ALBUTEROL 0.5-3(2.5)MG/3ML NEB INH PRN (10:00)
[2018-06-08] MEDS ORDERED: ONDANSETRON HCL 4MG/2ML INJ IV PRN (10:00)
[2018-06-08] MEDS ORDERED: DIPHENHYDRAMINE 50MG/ML VIAL IV PRN (10:00)
[2018-06-08] MEDS ORDERED: THIAMINE HCL 100 MG PO SCH (11:45)
[2018-06-08 12:00] VITALS: BP 152/81
[2018-06-08] MEDS ORDERED: MEGESTROL ACETATE 40MG TABLET PO SCH (12:00)
[2018-06-08] MEDS: RANOLAZINE 500 MG TAB.SR.12H PO SCH ×2 (12:25→21:56)
[2018-06-08] MEDS: CARVEDILOL 12.5MG TABLET PO SCH ×2 (12:25→21:55)
[2018-06-08] MEDS: METHYLPREDNISOLONE SOD SUCC 40 MG/ML VIAL IV SCH ×2 (12:25→21:31)
[2018-06-08] MEDS: LISINOPRIL 5MG TABLET PO SCH (12:26)
[2018-06-08] MEDS: FUROSEMIDE 80MG TABLET PO SCH (12:26)
[2018-06-08] MEDS: MORPHINE SULFATE 4 MG/ML CPJ (NOT FOR IM USE) IV PRN ×2 (12:26→22:45)
[2018-06-08] MEDS: SPIRONOLACTONE 25MG TABLET PO SCH (12:26)
[2018-06-08] MEDS: NICOTINE 14MG PATCH TD SCH (12:27)
[2018-06-08] MEDS: THIAMINE HCL 100MG TABLET PO SCH (12:27)
[2018-06-08] MEDS: PANTOPRAZOLE 40MG DR TABLET PO SCH (12:27)
[2018-06-08 12:44] LABS: BG BASE EXCESS -1.2 mmol/L (-2.0-2.0); BG CARBOXYHEMOGLOBIN 1.2 % (0.5-1.5); BG DEOXYHEMOGLOBIN 10.8 % (0.0-5.0); BG FRACTION INSPIRED OXYGEN 21; BG HCO3 ACT 25.1 mmol/L (22.0-26.0); BG METHEMOGLOBIN 0.4 % (0.0-1.5); BG OXYHEMOGLOBIN 87.6 % (94.0-97.0); BG PCO2 48.7 mmHg (35.0-45.0); BG PO2 63.1 mmHg (75.0-100.0); BG SAMPLE SITE RIGHT RADIAL; BG TOTAL HEMOGLOBIN 12.1 g/dL (12.0-18.0); BG VENT MODE ROOM AIR
[2018-06-08] MEDS ORDERED: LORAZEPAM 2MG/ML CPJ IV PRN (15:15)
[2018-06-08] MEDS ORDERED: THIAMINE HCL 100MG TABLET PO SCH (15:15)
[2018-06-08] MEDS ORDERED: POTASSIUM CHLORIDE 20MEQ TABLET SR PO SCH (15:30)
[2018-06-08] MEDS: MULTIVITAMINS,THER W-MINERALS TABLET PO SCH (15:54)
[2018-06-08] MEDS: FOLIC ACID 1MG TABLET PO SCH (15:54)
[2018-06-08 16:00] VITALS: BP 157/82
[2018-06-08] MEDS ORDERED: ENOXAPARIN 40MG/0.4ML SYR SUBCUT SCH (16:15)
[2018-06-08] MEDS: ISOSORBIDE DINITRATE 10MG TABLET PO SCH (16:19)
[2018-06-08 16:50] LABS: CREATINE KINASE MB FRACTION 1.5 ng/mL (0.5-3.6)
[2018-06-08 17:05] LABS: CLARITY URINE CLEAR (CLEAR); COLOR URINE YELLOW (YELLOW); KETONES URINE NEGATIVE (NEGATIVE); LEUKOCYTE ESTERASE URINE TRACE (NEGATIVE); NITRITE URINE NEGATIVE (NEGATIVE); OCCULT BLOOD URINE 1+ (NEGATIVE); PROTEIN URINE 2+ (NEGATIVE); UROBILINOGEN URINE 0.2 E.U./dL (0.2-1.0)
[2018-06-08] MEDS: IPRATROPIUM/ALBUTEROL 0.5-3(2.5)MG/3ML NEB HHN SCH ×2 (17:23→20:40)
[2018-06-08 17:34] LABS: *AMPHETAMINES SCREEN URINE NEGATIVE (NEGATIVE); *BARBITURATES SCREEN URINE NEGATIVE (NEGATIVE); *BENZODIAZEPINES SCREEN URINE PRESUMTIVE POSITIVE (NEGATIVE); *COCAINE SCREEN URINE NEGATIVE (NEGATIVE); CANNABINOID URINE SCREEN NEGATIVE (NEGATIVE); METHADONE URINE SCREEN NEGATIVE (NEGATIVE); OPIATES URINE SCREEN PRESUMTIVE POSITIVE (NEGATIVE); PHENCYCLIDINE URINE SCREEN NEGATIVE (NEGATIVE)
[2018-06-08 20:00] VITALS: BP 124/77
[2018-06-08] MEDS ORDERED: ATORVASTATIN CALCIUM 40MG TABLET PO SCH (21:00)
[2018-06-08] MEDS: LEVETIRACETAM 500MG TABLET PO SCH (21:55)
[2018-06-08] MEDS: CHLORDIAZEPOXIDE 25MG CAPSULE PO SCH (21:56)
[2018-06-09] VITALS: BP 100/67
[2018-06-09 00:16] LABS: CREATINE KINASE MB FRACTION 1.1 ng/mL (0.5-3.6)
[2018-06-09] MEDS: IPRATROPIUM/ALBUTEROL 0.5-3(2.5)MG/3ML NEB HHN SCH ×3 (00:30→09:03)
[2018-06-09 03:53] VITALS: BP 120/74
[2018-06-09] MEDS: METHYLPREDNISOLONE SOD SUCC 40 MG/ML VIAL IV SCH ×2 (06:08→14:34)
[2018-06-09] MEDS: PANTOPRAZOLE 40MG DR TABLET PO SCH (06:32)
[2018-06-09] MEDS: CHLORDIAZEPOXIDE 25MG CAPSULE PO SCH ×2 (06:32→14:34)
[2018-06-09 08:21] VITALS: BP 107/69
[2018-06-09] MEDS: ISOSORBIDE DINITRATE 10MG TABLET PO SCH (09:00)
[2018-06-09] MEDS ORDERED: ASPIRIN 81MG EC TABLET PO SCH (09:00)
[2018-06-09] MEDS: LISINOPRIL 5MG TABLET PO SCH (09:00)
[2018-06-09] MEDS: CARVEDILOL 12.5MG TABLET PO SCH (09:00)
[2018-06-09] MEDS ORDERED: CLOPIDOGREL 75MG TABLET PO SCH (09:10)
[2018-06-09] MEDS: RANOLAZINE 500 MG TAB.SR.12H PO SCH ×2 (09:16→09:26)
[2018-06-09] MEDS: NICOTINE 14MG PATCH TD SCH (09:26)
[2018-06-09] MEDS: THIAMINE HCL 100MG TABLET PO SCH (09:26)
[2018-06-09] MEDS: FOLIC ACID 1MG TABLET PO SCH (09:26)
[2018-06-09] MEDS: SPIRONOLACTONE 25MG TABLET PO SCH (09:26)
[2018-06-09] MEDS: LEVETIRACETAM 500MG TABLET PO SCH (09:26)
[2018-06-09] MEDS: FUROSEMIDE 80MG TABLET PO SCH (09:26)
[2018-06-09] MEDS: MULTIVITAMINS,THER W-MINERALS TABLET PO SCH (09:27)
[2018-06-09 10:17] LABS: BASOPHILS % 0.8 % (0.0-2.0); HEMATOCRIT. 32.4 % (42.0-52.0); HEMOGLOBIN. 10.7 g/dL (14.0-18.0); LYMPHOCYTES % 9.6 % (20.0-50.0); MEAN CORPUSCULAR HEMOGLOBIN 32.4 pg (28.0-32.0); MEAN PLATELET VOLUME 9.4 fl (7.4-10.4); MONOCYTES % 3.6 % (2.0-8.0); PLATELET 102 x1000/uL (130-400); RED BLOOD CELL COUNT 3.31 mill/uL (4.7-6.1); RED CELL DISTRIBUTION WIDTH 16.6 % (11.6-14.6)
[2018-06-09 10:45] LABS: CHLORIDE 99 mEq/L (98-107)
[2018-06-09 10:57] LABS: HDL CHOLESTEROL 126 mg/dL (40-59); LDL CHOLESTEROL 127 mg/dL (5-100); T4 FREE 0.65 ng/dL (0.76-1.46)
[2018-06-09 11:58] VITALS: BP 124/73
[2018-06-09 13:03] VITALS: BP 124/73
== END 2018-06-09 15:13 | disposition home or self-care (01) | DRG 280 ==
LOC: ER 23:35 → 6WST 06-08 04:16 → EDBEDREQ 06-08 04:27 → EDBEDREQTM 06-08 04:27 → ENRESERV 06-08 06:58
PROVIDERS: ADMIT Internal Medicine; ATTEND Internal Medicine
DX: I21.4 Non-ST elevation (NSTEMI) myocardial infarction (principal); I50.43 Acute on chronic combined systolic (congestive) and diastolic (congestive) heart failure; I42.9 Cardiomyopathy, unspecified; I25.110 Atherosclerotic heart disease of native coronary artery with unstable angina pectoris; E87.6 Hypokalemia; F10.10 Alcohol abuse, uncomplicated; E86.0 Dehydration; F17.210 Nicotine dependence, cigarettes, uncomplicated; G40.909 Epilepsy, unspecified, not intractable, without status epilepticus; I11.0 Hypertensive heart disease with heart failure; Y90.8 Blood alcohol level of 240 mg/100 ml or more; J44.9 Chronic obstructive pulmonary disease, unspecified; R79.1 Abnormal coagulation profile; T51.0X1A Toxic effect of ethanol, accidental (unintentional), initial encounter; Y92.89 Other specified places as the place of occurrence of the external cause; Z91.19 Patient's noncompliance with other medical treatment and regimen; Z95.5 Presence of coronary angioplasty implant and graft; Z88.4 Allergy status to anesthetic agent; Z88.8 Allergy status to other drugs, medicaments and biological substances; Z79.51 Long term (current) use of inhaled steroids; Z79.82 Long term (current) use of aspirin; Z79.899 Other long term (current) drug therapy; I25.2 Old myocardial infarction; Z95.810 Presence of automatic (implantable) cardiac defibrillator; Z71.6 Tobacco abuse counseling
CPT/HCPCS: 36415; 36600; 71045; 78582; 80061; 80305; 82375; 82542; 82550; 82553; 82805; 83735; 83880; 84439; 84443; 84484; 85379; 93005; 93306; 93970; 94640; 96374; 96375; 97162; 99285; A9558; G0482; J1200; J1650; J2060; J2270; J2405; J2920; J7620

== ENCOUNTER 2019-02-16 23:28 | Inpatient (IN) | payer OTHER ==
[~2019-02-16] VITALS: Ht 172.7 cm; Wt 67.4 kg
[~2019-02-16 23:28] MED LIST changes: -ALBU18HF2 IH; -ASPI-1159 PO; +ASPI-1393 PO; -BUDE6.9H INH; +CARV12.545 PO; -CLOP75TA16 PO; +CLOP75TA4 PO; -COR3 PO; -DIAZ5TAB4 PO; +DOXY100T2 PO; -FAMO20TA8 PO; +FURO80TA3 MT; -FURO80TA87 PO; -IBUP-2030 PO; -ISOS10TA2 PO; -KDUR10 PO; +LISI-186 PO; -LISI-650 PO; +MEGE40TA27 PO; -METO-539 PO; -NITR0.4T49 PO; +NITR0.4T49 SL; -P20 PO; +POTA20TA82 MT; -RANO500T3 PO; +THIA100T13 PO
[2019-02-17] MEDS ORDERED: CLONIDINE 0.2MG TABLET PO ONE
[2019-02-17 00:51] LABS: BASOPHILS % 0.6 % (0.0-2.0); EOSINOPHILS % 1.4 % (0.0-5.0); HEMATOCRIT. 32.4 % (42.0-52.0); HEMOGLOBIN. 10.5 g/dL (14.0-18.0); LYMPHOCYTES % 21.4 % (20.0-50.0); MONOCYTES % 9.6 % (2.0-8.0); PLATELET 309 x1000/uL (130-400); RED CELL DISTRIBUTION WIDTH 16.6 % (11.6-14.6)
[2019-02-17 00:55] LABS: CHLORIDE 110 mEq/L (98-107)
[2019-02-17] MEDS ORDERED: MORPHINE SULFATE 4 MG/ML CPJ (NOT FOR IM USE) IV ONE (01:45)
[2019-02-17] MEDS ORDERED: IPRATROPIUM BROMIDE (0.02%) 0.5MG/2.5ML NEB HHN STA (01:45)
[2019-02-17] MEDS ORDERED: ALBUTEROL (0.083%) 2.5MG/3ML NEB HHN STA (01:45)
[2019-02-17] MEDS ORDERED: ASPIRIN 81MG TABLET PO ONE (01:45)
[2019-02-17] MEDS ORDERED: METHYLPREDNISOLONE SOD SUCC 125 MG/2 ML VIAL IV ONE (03:00)
[2019-02-17] MEDS ORDERED: SODIUM CHLORIDE 0.9% 1,000 ML IV NR (03:15)
[2019-02-17 08:00] VITALS: BP 130/77
[2019-02-17 09:00] VITALS: BP 112/65
[2019-02-17 12:00] VITALS: BP 125/67
[2019-02-17 12:55] LABS: ETHANOL BLOOD < 10 mg/dL
[2019-02-17 12:57] LABS: CREATINE KINASE 120 IU/L (39-308)
[2019-02-17 12:58] LABS: CREATINE KINASE MB FRACTION 1.7 ng/mL (0.5-3.6)
[2019-02-17] MEDS ORDERED: DIPHENHYDRAMINE 50MG/ML VIAL IV PRN ×2 (14:00→15:30)
[2019-02-17] MEDS ORDERED: NITROGLYCERIN 0.4MG TABLET SL SL PRN (14:00)
[2019-02-17] MEDS ORDERED: IPRATROPIUM/ALBUTEROL 0.5-3(2.5)MG/3ML NEB HHN PRN (14:00)
[2019-02-17] MEDS: MORPHINE SULFATE 2 MG/ML CPJ (NOT FOR IM USE) IV PRN ×2 (14:35→20:00)
[2019-02-17] MEDS ORDERED: HYDRALAZINE 20MG/ML VIAL IV PRN (15:30)
[2019-02-17 15:35] LABS: INR 1.1; PROTHROMBIN TIME 11.2 sec (9.6-11.0)
[2019-02-17 15:44] LABS: CREATINE KINASE MB FRACTION 1.5 ng/mL (0.5-3.6)
[2019-02-17 16:00] VITALS: BP 102/63
[2019-02-17 19:27] LABS: HEMATOCRIT 25.4 % (42.0-52.0); HEMOGLOBIN 8.2 g/dL (14.0-18.0)
[2019-02-17 20:00] VITALS: BP 103/53
[2019-02-17 21:09] LABS: CLARITY URINE CLEAR (CLEAR); COLOR URINE YELLOW (YELLOW); KETONES URINE NEGATIVE (NEGATIVE); LEUKOCYTE ESTERASE URINE NEGATIVE (NEGATIVE); NITRITE URINE NEGATIVE (NEGATIVE); OCCULT BLOOD URINE NEGATIVE (NEGATIVE); PH URINE 6.5 (4.5-8.0); PROTEIN URINE NEGATIVE (NEGATIVE); SPECIFIC GRAVITY URINE 1.021 (1.005-1.030); UROBILINOGEN URINE 0.2 E.U./dL (0.2-1.0)
[2019-02-17 21:19] LABS: *AMPHETAMINES SCREEN URINE NEGATIVE (NEGATIVE); *BARBITURATES SCREEN URINE NEGATIVE (NEGATIVE); *BENZODIAZEPINES SCREEN URINE PRESUMTIVE POSITIVE (NEGATIVE); *COCAINE SCREEN URINE NEGATIVE (NEGATIVE); METHADONE URINE SCREEN NEGATIVE (NEGATIVE)
[2019-02-17 21:20] LABS: CANNABINOID URINE SCREEN NEGATIVE (NEGATIVE); OPIATES URINE SCREEN PRESUMTIVE POSITIVE (NEGATIVE); PHENCYCLIDINE URINE SCREEN NEGATIVE (NEGATIVE)
[2019-02-17 21:25] LABS: CREATINE KINASE MB FRACTION 1.3 ng/mL (0.5-3.6)
[2019-02-18] VITALS: BP 105/59
[2019-02-18] MEDS: MORPHINE SULFATE 2 MG/ML CPJ (NOT FOR IM USE) IV PRN ×4 (00:01→14:55)
[2019-02-18] MEDS: IPRATROPIUM/ALBUTEROL 0.5-3(2.5)MG/3ML NEB HHN PRN ×2 (00:17→04:48)
[2019-02-18 04:00] VITALS: BP 105/62
[2019-02-18 06:18] LABS: HEMATOCRIT 24.2 % (42.0-52.0); HEMOGLOBIN 8.1 g/dL (14.0-18.0); MEAN CORPUSCULAR VOLUME 80.4 fL (80.0-94.0); PLATELET 265 x1000/uL (130-400); RED BLOOD CELL COUNT 3.01 mill/uL (4.7-6.1); RED CELL DISTRIBUTION WIDTH 15.9 % (11.6-14.6)
[2019-02-18 07:34] LABS: CHLORIDE 110 mEq/L (98-107)
[2019-02-18 07:43] LABS: LDL CHOLESTEROL 107 mg/dL (5-100)
[2019-02-18 07:44] LABS: HDL CHOLESTEROL 33 mg/dL (40-59)
[2019-02-18 08:00] VITALS: BP 116/60
[2019-02-18] MEDS ORDERED: NITROGLYCERIN 0.4MG TABLET SL SL PRN (08:00)
[2019-02-18] MEDS: ASPIRIN 81MG TABLET PO SCH (09:13)
[2019-02-18] MEDS: PANTOPRAZOLE 40MG DR TABLET PO SCH (09:13)
[2019-02-18] MEDS: LEVETIRACETAM 500MG TABLET PO SCH ×2 (09:13→21:09)
[2019-02-18] MEDS: FOLIC ACID 1MG TABLET PO SCH (09:13)
[2019-02-18] MEDS: LISINOPRIL 5MG TABLET PO SCH (09:14)
[2019-02-18] MEDS: CARVEDILOL 12.5MG TABLET PO SCH ×2 (09:15→21:00)
[2019-02-18] MEDS: THIAMINE HCL 100MG TABLET PO SCH (09:20)
[2019-02-18] MEDS ORDERED: VANCOMYCIN 1250MG in DEXTROSE 5% WATER 250ML IV SCH (11:00)
[2019-02-18 12:00] VITALS: BP 124/70
[2019-02-18] MEDS: FUROSEMIDE 40MG/4ML VIAL IVP SCH ×2 (13:00→16:53)
[2019-02-18] MEDS: CHLORDIAZEPOXIDE 25MG CAPSULE PO SCH ×2 (13:00→18:32)
[2019-02-18 14:03] LABS: BG BASE EXCESS -3.9 mmol/L (-2.0-2.0); BG CARBOXYHEMOGLOBIN 0.3 % (0.5-1.5); BG DEOXYHEMOGLOBIN 5.2 % (0.0-5.0); BG FRACTION INSPIRED OXYGEN 21; BG HCO3 ACT 20.4 mmol/L (22.0-26.0); BG METHEMOGLOBIN 0.2 % (0.0-1.5); BG OXYGEN SATURATION 94.8 % (92.0-98.5); BG OXYHEMOGLOBIN 94.3 % (94.0-97.0); BG PCO2 33.8 mmHg (35.0-45.0); BG PH 7.398 (7.350-7.450); BG PO2 77.6 mmHg (75.0-100.0); BG SAMPLE SITE RIGHT BRACHIAL; BG TOTAL HEMOGLOBIN 9.3 g/dL (12.0-18.0); BG VENT MODE ROOM AIR
[2019-02-18] MEDS: NICOTINE 14MG PATCH TD SCH (14:51)
[2019-02-18] MEDS: IPRATROPIUM/ALBUTEROL 0.5-3(2.5)MG/3ML NEB HHN SCH ×2 (15:48→21:19)
[2019-02-18 16:00] VITALS: BP 89/48
[2019-02-18] MEDS: METHYLPREDNISOLONE SOD SUCC 40 MG/ML VIAL IV SCH (16:53)
[2019-02-18 16:58] LABS: HEMATOCRIT 28.7 % (42.0-52.0); HEMOGLOBIN 9.3 g/dL (14.0-18.0)
[2019-02-18] MEDS: PIPERACILLIN/TAZ 2.25G PREMIX 50 ML IV SCH (18:32)
[2019-02-18 20:00] VITALS: BP 85/51
[2019-02-18] MEDS: VANCOMYCIN 1 G PREMIX 200 ML IV SCH (21:09)
[2019-02-18] MEDS: ATORVASTATIN CALCIUM 40MG TABLET PO SCH (21:09)
[2019-02-19] VITALS (7 sets, daily range): BP systolic 85–175; BP diastolic 52–90
[2019-02-19] MEDS ORDERED: SODIUM CHLORIDE 0.9% 250 ML IV ONE ×2 (00:40→01:00)
[2019-02-19] MEDS: CHLORDIAZEPOXIDE 25MG CAPSULE PO SCH ×4 (00:50→21:18)
[2019-02-19] MEDS: DEXT 5%/0.45% NACL 1000ML 1,000 ML IV SCH (00:54)
[2019-02-19] MEDS: PIPERACILLIN/TAZ 2.25G PREMIX 50 ML IV SCH ×4 (00:55→23:45)
[2019-02-19] MEDS: IPRATROPIUM/ALBUTEROL 0.5-3(2.5)MG/3ML NEB HHN SCH ×6 (00:56→21:55)
[2019-02-19] MEDS: PANTOPRAZOLE 40MG DR TABLET PO SCH (06:04)
[2019-02-19] MEDS: FUROSEMIDE 40MG/4ML VIAL IVP SCH ×2 (06:05→21:20)
[2019-02-19] MEDS: VANCOMYCIN 1 G PREMIX 200 ML IV SCH (06:05)
[2019-02-19] MEDS: LISINOPRIL 5MG TABLET PO SCH (09:00)
[2019-02-19] MEDS: CARVEDILOL 12.5MG TABLET PO SCH ×2 (09:00→21:19)
[2019-02-19] MEDS: FOLIC ACID 1MG TABLET PO SCH (10:00)
[2019-02-19] MEDS: LEVETIRACETAM 500MG TABLET PO SCH ×2 (10:00→21:18)
[2019-02-19] MEDS: ASPIRIN 81MG TABLET PO SCH (10:00)
[2019-02-19] MEDS: THIAMINE HCL 100MG TABLET PO SCH (10:00)
[2019-02-19] MEDS: METHYLPREDNISOLONE SOD SUCC 40 MG/ML VIAL IV SCH ×2 (10:00→21:20)
[2019-02-19] MEDS: NICOTINE 14MG PATCH TD SCH (10:01)
[2019-02-19 10:13] LABS: HEMATOCRIT 29.4 % (42.0-52.0); HEMOGLOBIN 9.4 g/dL (14.0-18.0); MEAN CORPUSCULAR HEMOGLOBIN 26.4 pg (28.0-32.0); MEAN CORPUSCULAR VOLUME 82.4 fL (80.0-94.0); PLATELET 307 x1000/uL (130-400); RED BLOOD CELL COUNT 3.57 mill/uL (4.7-6.1); RED CELL DISTRIBUTION WIDTH 15.8 % (11.6-14.6)
[2019-02-19 10:23] LABS: CHLORIDE 106 mEq/L (98-107)
[2019-02-19] MEDS ORDERED: GENTAMICIN SULF 40MG/ML 2ML VIAL ONE (16:41)
[2019-02-19] MEDS ORDERED: CEFAZOLIN 1000MG PREMIX 100 ML IV ONE (17:15)
[2019-02-19] MEDS ORDERED: MIDAZOLAM HCL 2 MG/2 ML VIAL ONE (17:27)
[2019-02-19] MEDS ORDERED: FENTANYL CITRATE/PF 50MCG/ML 2ML VIAL ONE (17:27)
[2019-02-19] MEDS ORDERED: LIDOCAINE HCL 1% 20ML VIAL (Pyxis) INJ ONE (17:47)
[2019-02-19] MEDS ORDERED: GENTAMICIN/NS IRRIGATION 500 ML IR ONE (17:47)
[2019-02-19] MEDS ORDERED: VANCOMYCIN 1250MG in DEXTROSE 5% WATER 250ML IV SCH (18:00)
[2019-02-19] MEDS: ATORVASTATIN CALCIUM 40MG TABLET PO SCH (21:18)
[2019-02-19] MEDS: MORPHINE SULFATE 2 MG/ML CPJ (NOT FOR IM USE) IV PRN (21:21)
[2019-02-19] MEDS: ONDANSETRON HCL 4MG/2ML INJ IV PRN (22:18)
[2019-02-20] VITALS (12 sets, daily range): BP systolic 88–128; BP diastolic 43–88
[2019-02-20] MEDS: PIPERACILLIN/TAZ 2.25G PREMIX 50 ML IV SCH ×5 (00:01→23:56)
[2019-02-20] MEDS: IPRATROPIUM/ALBUTEROL 0.5-3(2.5)MG/3ML NEB HHN SCH ×6 (00:19→21:03)
[2019-02-20] MEDS: DEXT 5%/0.45% NACL 1000ML 1,000 ML IV SCH (04:02)
[2019-02-20 05:41] LABS: BASOPHILS % 0.1 % (0.0-2.0); HEMATOCRIT. 27.2 % (42.0-52.0); HEMOGLOBIN. 8.9 g/dL (14.0-18.0); LYMPHOCYTES % 4.9 % (20.0-50.0); MEAN CORPUSCULAR HEMOGLOBIN 26.7 pg (28.0-32.0); MEAN CORPUSCULAR VOLUME 81.6 fL (80.0-94.0); MEAN PLATELET VOLUME 8.3 fl (7.4-10.4); MONOCYTES % 7.2 % (2.0-8.0); NEUTROPHILS % 87.8 % (40.0-76.0); PLATELET 293 x1000/uL (130-400); RED BLOOD CELL COUNT 3.33 mill/uL (4.7-6.1); RED CELL DISTRIBUTION WIDTH 15.9 % (11.6-14.6)
[2019-02-20] MEDS: FUROSEMIDE 40MG/4ML VIAL IVP SCH ×2 (06:23→16:45)
[2019-02-20] MEDS: CHLORDIAZEPOXIDE 25MG CAPSULE PO SCH ×5 (06:25→23:59)
[2019-02-20] MEDS: PANTOPRAZOLE 40MG DR TABLET PO SCH (06:26)
[2019-02-20 06:31] LABS: CHLORIDE 106 mEq/L (98-107)
[2019-02-20] MEDS: ENOXAPARIN 40MG/0.4ML SYR SUBCUT SCH ×2 (09:00→10:10)
[2019-02-20] MEDS ORDERED: ENOXAPARIN 40MG/0.4ML SYR SUBCUT SCH (09:00)
[2019-02-20] MEDS: CARVEDILOL 12.5MG TABLET PO SCH ×2 (10:10→21:09)
[2019-02-20] MEDS: METHYLPREDNISOLONE SOD SUCC 40 MG/ML VIAL IV SCH ×2 (10:10→21:06)
[2019-02-20] MEDS: ASPIRIN 81MG TABLET PO SCH (10:11)
[2019-02-20] MEDS: NICOTINE 14MG PATCH TD SCH (10:11)
[2019-02-20] MEDS: POTASSIUM CHLORIDE 20MEQ TABLET SR PO SCH (10:11)
[2019-02-20] MEDS: LEVETIRACETAM 500MG TABLET PO SCH ×2 (10:11→21:07)
[2019-02-20] MEDS: THIAMINE HCL 100MG TABLET PO SCH (10:11)
[2019-02-20] MEDS: FOLIC ACID 1MG TABLET PO SCH (10:12)
[2019-02-20] MEDS: LISINOPRIL 5MG TABLET PO SCH (10:12)
[2019-02-20] MEDS: MORPHINE SULFATE 2 MG/ML CPJ (NOT FOR IM USE) IV PRN ×3 (10:13→21:12)
[2019-02-20] MEDS: VANCOMYCIN 750 MG PREMIX 150 ML IV SCH ×2 (14:11→21:13)
[2019-02-20] MEDS: ATORVASTATIN CALCIUM 40MG TABLET PO SCH (21:07)
[2019-02-20] MEDS: ONDANSETRON HCL 4MG/2ML INJ IV PRN (21:12)
[2019-02-21] VITALS (14 sets, daily range): BP systolic 72–128; BP diastolic 42–76
[2019-02-21] MEDS: IPRATROPIUM/ALBUTEROL 0.5-3(2.5)MG/3ML NEB HHN SCH ×5 (00:45→16:21)
[2019-02-21] MEDS ORDERED: SODIUM CHLORIDE 0.9% 500 ML IV NR (02:00)
[2019-02-21] MEDS: PIPERACILLIN/TAZ 2.25G PREMIX 50 ML IV SCH ×4 (05:12→22:45)
[2019-02-21] MEDS: CHLORDIAZEPOXIDE 25MG CAPSULE PO SCH (05:12)
[2019-02-21] MEDS: FUROSEMIDE 40MG/4ML VIAL IVP SCH (06:19)
[2019-02-21 07:04] LABS: HEMATOCRIT 27.7 % (42.0-52.0); MEAN CORPUSCULAR HEMOGLOBIN 26.8 pg (28.0-32.0); MEAN CORPUSCULAR VOLUME 82.2 fL (80.0-94.0); PLATELET 255 x1000/uL (130-400); RED BLOOD CELL COUNT 3.37 mill/uL (4.7-6.1); RED CELL DISTRIBUTION WIDTH 16.3 % (11.6-14.6)
[2019-02-21] MEDS: VANCOMYCIN 750 MG PREMIX 150 ML IV SCH (08:39)
[2019-02-21] MEDS: NICOTINE 14MG PATCH TD SCH (08:39)
[2019-02-21] MEDS: ASPIRIN 81MG TABLET PO SCH (08:39)
[2019-02-21] MEDS: LEVETIRACETAM 500MG TABLET PO SCH ×2 (08:39→20:48)
[2019-02-21] MEDS: THIAMINE HCL 100MG TABLET PO SCH (08:40)
[2019-02-21] MEDS: FOLIC ACID 1MG TABLET PO SCH (08:40)
[2019-02-21] MEDS: POTASSIUM CHLORIDE 20MEQ TABLET SR PO SCH (08:40)
[2019-02-21] MEDS: METHYLPREDNISOLONE SOD SUCC 40 MG/ML VIAL IV SCH (08:41)
[2019-02-21] MEDS: ENOXAPARIN 40MG/0.4ML SYR SUBCUT SCH (08:41)
[2019-02-21] MEDS: CARVEDILOL 12.5MG TABLET PO SCH (08:41)
[2019-02-21] MEDS: LISINOPRIL 5MG TABLET PO SCH (08:41)
[2019-02-21] MEDS ORDERED: FAMOTIDINE 20MG TABLET PO SCH (09:00)
[2019-02-21] MEDS: DEXT 5%/0.45% NACL 1000ML 1,000 ML IV SCH (11:45)
[2019-02-21] MEDS ORDERED: MIDODRINE HCL 5MG TABLET PO PRN (11:45)
[2019-02-21] MEDS ORDERED: PROPOFOL 200MG/20ML VIAL IV ONE (13:05)
[2019-02-21 15:17] LABS: BG BASE EXCESS -5.5 mmol/L (-2.0-2.0); BG CARBOXYHEMOGLOBIN 0.3 % (0.5-1.5); BG DEOXYHEMOGLOBIN 7.7 % (0.0-5.0); BG FRACTION INSPIRED OXYGEN 21; BG HCO3 ACT 19.7 mmol/L (22.0-26.0); BG METHEMOGLOBIN 0.4 % (0.0-1.5); BG OXYGEN SATURATION 92.2 % (92.0-98.5); BG OXYHEMOGLOBIN 91.6 % (94.0-97.0); BG PCO2 37.5 mmHg (35.0-45.0); BG PH 7.339 (7.350-7.450); BG PO2 71.7 mmHg (75.0-100.0); BG SAMPLE SITE RIGHT RADIAL; BG VENT MODE ROOM AIR
[2019-02-21] MEDS: MORPHINE SULFATE 2 MG/ML CPJ (NOT FOR IM USE) IV PRN ×2 (18:19→22:40)
[2019-02-21] MEDS ORDERED: FURO-151 MT (20:39)
[2019-02-21] MEDS: ATORVASTATIN CALCIUM 40MG TABLET PO SCH (20:48)
[2019-02-21] MEDS: CARVEDILOL 3.125 MG TABLET PO SCH (21:00)
[2019-02-21] MEDS: ONDANSETRON HCL 4MG/2ML INJ IV PRN (21:22)
[2019-02-22] VITALS (15 sets, daily range): BP systolic 85–113; BP diastolic 47–63
[2019-02-22] MEDS: DEXT 5%/0.45% NACL 1000ML 1,000 ML IV SCH ×2 (01:14→14:47)
[2019-02-22] MEDS: IPRATROPIUM/ALBUTEROL 0.5-3(2.5)MG/3ML NEB HHN SCH ×6 (01:39→21:35)
[2019-02-22] MEDS: PIPERACILLIN/TAZ 2.25G PREMIX 50 ML IV SCH ×4 (06:48→23:15)
[2019-02-22 06:50] LABS: HEMATOCRIT. 24.4 % (42.0-52.0); HEMOGLOBIN. 8.1 g/dL (14.0-18.0); MEAN CORPUSCULAR HEMOGLOBIN 27.3 pg (28.0-32.0); MEAN CORPUSCULAR VOLUME 82.1 fL (80.0-94.0); MEAN PLATELET VOLUME 8.1 fl (7.4-10.4); PLATELET 228 x1000/uL (130-400); RED BLOOD CELL COUNT 2.98 mill/uL (4.7-6.1)
[2019-02-22 07:02] LABS: CHLORIDE 111 mEq/L (98-107)
[2019-02-22] MEDS: HYDROCODONE/ACETAMINOPHEN 5/325MG TABLET PO PRN ×2 (07:50→21:35)
[2019-02-22] MEDS: CARVEDILOL 3.125 MG TABLET PO SCH ×2 (09:00→21:00)
[2019-02-22] MEDS: METHYLPREDNISOLONE SOD SUCC 40 MG/ML VIAL IV SCH (09:05)
[2019-02-22] MEDS: THIAMINE HCL 100MG TABLET PO SCH (09:05)
[2019-02-22] MEDS: LISINOPRIL 5MG TABLET PO SCH (09:05)
[2019-02-22] MEDS: LEVETIRACETAM 500MG TABLET PO SCH ×2 (09:06→21:14)
[2019-02-22] MEDS: FOLIC ACID 1MG TABLET PO SCH (09:06)
[2019-02-22] MEDS: FAMOTIDINE 20MG TABLET PO SCH (09:07)
[2019-02-22] MEDS: NICOTINE 14MG PATCH TD SCH (09:07)
[2019-02-22] MEDS: ASPIRIN 81MG TABLET PO SCH (09:07)
[2019-02-22] MEDS: POTASSIUM CHLORIDE 20MEQ TABLET SR PO SCH (09:07)
[2019-02-22 11:30] LABS: BG BASE EXCESS -5.4 mmol/L (-2.0-2.0); BG CARBOXYHEMOGLOBIN 0.3 % (0.5-1.5); BG DEOXYHEMOGLOBIN 6.7 % (0.0-5.0); BG FRACTION INSPIRED OXYGEN 21; BG HCO3 ACT 20.2 mmol/L (22.0-26.0); BG METHEMOGLOBIN 0.2 % (0.0-1.5); BG OXYGEN SATURATION 93.3 % (92.0-98.5); BG OXYHEMOGLOBIN 92.8 % (94.0-97.0); BG PCO2 39.6 mmHg (35.0-45.0); BG PH 7.325 (7.350-7.450); BG PO2 75.3 mmHg (75.0-100.0); BG SAMPLE SITE RIGHT RADIAL; BG TOTAL HEMOGLOBIN 9.3 g/dL (12.0-18.0); BG VENT MODE ROOM AIR
[2019-02-22] MEDS: MORPHINE SULFATE 2 MG/ML CPJ (NOT FOR IM USE) IV PRN (11:44)
[2019-02-22] MEDS ORDERED: VANCOMYCIN 750 MG PREMIX 150 ML IV SCH (13:00)
[2019-02-22] MEDS: FUROSEMIDE 40MG/4ML VIAL IVP SCH (13:28)
[2019-02-22] MEDS: MIDODRINE HCL 5MG TABLET PO SCH ×2 (13:28→16:48)
[2019-02-22] MEDS ORDERED: IBUP-2030 PO (14:34)
[2019-02-22] MEDS ORDERED: TRAM50TA3 PO (14:34)
[2019-02-22] MEDS ORDERED: SPIR25TA6 MT (14:34)
[2019-02-22] MEDS ORDERED: SACU1TAB MT (14:34)
[2019-02-22 16:47] LABS: PLATELET ESTIMATE NORMAL
[2019-02-22 18:17] LABS: HEMOGLOBIN 8.8 g/dL (14.0-18.0)
[2019-02-22] MEDS: ATORVASTATIN CALCIUM 40MG TABLET PO SCH (21:14)
[2019-02-23] VITALS (12 sets, daily range): BP systolic 92–152; BP diastolic 44–68
[2019-02-23] MEDS: IPRATROPIUM/ALBUTEROL 0.5-3(2.5)MG/3ML NEB HHN SCH ×5 (01:06→21:17)
[2019-02-23] MEDS: HYDROCODONE/ACETAMINOPHEN 5/325MG TABLET PO PRN (01:53)
[2019-02-23] MEDS: DEXT 5%/0.45% NACL 1000ML 1,000 ML IV SCH (04:31)
[2019-02-23] MEDS: PIPERACILLIN/TAZ 2.25G PREMIX 50 ML IV SCH ×3 (04:32→23:31)
[2019-02-23] MEDS: VANCOMYCIN 750 MG PREMIX 150 ML IV SCH ×2 (06:55→23:32)
[2019-02-23 07:01] LABS: HEMATOCRIT 27.3 % (42.0-52.0); HEMOGLOBIN 8.7 g/dL (14.0-18.0); MEAN CORPUSCULAR HEMOGLOBIN 26.6 pg (28.0-32.0); MEAN CORPUSCULAR VOLUME 83.6 fL (80.0-94.0); PLATELET 224 x1000/uL (130-400); RED BLOOD CELL COUNT 3.27 mill/uL (4.7-6.1); RED CELL DISTRIBUTION WIDTH 16.1 % (11.6-14.6)
[2019-02-23 07:16] LABS: CHLORIDE 109 mEq/L (98-107)
[2019-02-23] MEDS: FAMOTIDINE 20MG TABLET PO SCH (09:00)
[2019-02-23] MEDS: METHYLPREDNISOLONE SOD SUCC 40 MG/ML VIAL IV SCH (09:00)
[2019-02-23] MEDS: FOLIC ACID 1MG TABLET PO SCH (09:00)
[2019-02-23] MEDS: NICOTINE 14MG PATCH TD SCH (09:00)
[2019-02-23] MEDS: THIAMINE HCL 100MG TABLET PO SCH (09:00)
[2019-02-23] MEDS: ASPIRIN 81MG TABLET PO SCH (09:00)
[2019-02-23] MEDS: FUROSEMIDE 40MG/4ML VIAL IVP SCH (09:00)
[2019-02-23] MEDS: CARVEDILOL 3.125 MG TABLET PO SCH ×2 (09:00→20:21)
[2019-02-23] MEDS: MIDODRINE HCL 5MG TABLET PO SCH (09:00)
[2019-02-23] MEDS: LISINOPRIL 5MG TABLET PO SCH (09:00)
[2019-02-23] MEDS: POTASSIUM CHLORIDE 20MEQ TABLET SR PO SCH (09:00)
[2019-02-23] MEDS: LEVETIRACETAM 500MG TABLET PO SCH ×2 (09:00→20:24)
[2019-02-23] MEDS ORDERED: MIDODRINE HCL 5MG TABLET PO PRN (15:15)
[2019-02-23] MEDS: ATORVASTATIN CALCIUM 40MG TABLET PO SCH (20:24)
[2019-02-23] MEDS: HYDROCODONE/APAP 7.5/325MG 1 TAB TABLET PO PRN (20:29)
[2019-02-24] VITALS (7 sets, daily range): BP systolic 94–115; BP diastolic 51–69
[2019-02-24] MEDS: IPRATROPIUM/ALBUTEROL 0.5-3(2.5)MG/3ML NEB HHN SCH ×5 (02:04→16:35)
[2019-02-24] MEDS: HYDROCODONE/APAP 7.5/325MG 1 TAB TABLET PO PRN (02:27)
[2019-02-24] MEDS: PIPERACILLIN/TAZ 2.25G PREMIX 50 ML IV SCH ×3 (04:15→17:53)
[2019-02-24 08:55] LABS: HEMATOCRIT 27.1 % (42.0-52.0); HEMOGLOBIN 8.8 g/dL (14.0-18.0); MEAN CORPUSCULAR HEMOGLOBIN 26.7 pg (28.0-32.0); MEAN CORPUSCULAR VOLUME 82.1 fL (80.0-94.0); PLATELET 217 x1000/uL (130-400)
[2019-02-24] MEDS: CARVEDILOL 3.125 MG TABLET PO SCH (09:00)
[2019-02-24] MEDS: LISINOPRIL 5MG TABLET PO SCH (09:00)
[2019-02-24] MEDS: FUROSEMIDE 40MG/4ML VIAL IVP SCH (09:10)
[2019-02-24] MEDS: FAMOTIDINE 20MG TABLET PO SCH (09:10)
[2019-02-24] MEDS: ASPIRIN 81MG TABLET PO SCH (09:10)
[2019-02-24] MEDS: LEVETIRACETAM 500MG TABLET PO SCH (09:10)
[2019-02-24] MEDS: NICOTINE 14MG PATCH TD SCH (09:11)
[2019-02-24] MEDS: FOLIC ACID 1MG TABLET PO SCH (09:11)
[2019-02-24] MEDS: POTASSIUM CHLORIDE 20MEQ TABLET SR PO SCH (09:11)
[2019-02-24] MEDS: THIAMINE HCL 100MG TABLET PO SCH (09:11)
[2019-02-24 09:16] LABS: CHLORIDE 107 mEq/L (98-107)
[2019-02-24] MEDS ORDERED: MORPHINE SULFATE 2 MG/ML CPJ (NOT FOR IM USE) IV PRN (12:15)
[2019-02-24] MEDS: ONDANSETRON HCL 4MG/2ML INJ IV PRN (12:57)
[2019-02-24] MEDS ORDERED: MIDODRINE HCL 5MG TABLET PO PRN (14:30)
[2019-02-24] MEDS: VANCOMYCIN 750 MG PREMIX 150 ML IV SCH (18:45)
[2019-02-24] MEDS ORDERED: ZOLPIDEM TARTRATE 5MG TABLET PO PRN (21:00)
== END 2019-02-24 20:24 | DRG 260 ==
LOC: ER 23:28 → 8WST 02-17 02:48 → ENRESERV 02-17 07:00 → 3WST 02-19 19:50 → 5WST 02-23 18:57
PROVIDERS: ADMIT Internal Medicine; ATTEND Internal Medicine
PROC: 02HV33Z Insertion of Infusion Device into Superior Vena Cava, Percutaneous Approach (ICD-10-PCS; 2019-02-19)
PROC: B5181ZA Fluoroscopy of Superior Vena Cava using Low Osmolar Contrast, Guidance (ICD-10-PCS; 2019-02-19)
PROC: B548ZZA Ultrasonography of Superior Vena Cava, Guidance (ICD-10-PCS; 2019-02-19)
PROC: 0JC60ZZ Extirpation of Matter from Chest Subcutaneous Tissue and Fascia, Open Approach (ICD-10-PCS; 2019-02-19)
PROC: 02WA0MZ Revision of Cardiac Lead in Heart, Open Approach (ICD-10-PCS; principal; 2019-02-21)
PROC: 0JWT0PZ Revision of Cardiac Rhythm Related Device in Trunk Subcutaneous Tissue and Fascia, Open Approach (ICD-10-PCS; 2019-02-21)
DX: T82.837A Hemorrhage due to cardiac prosthetic devices, implants and grafts, initial encounter (principal); I21.4 Non-ST elevation (NSTEMI) myocardial infarction; I50.23 Acute on chronic systolic (congestive) heart failure; J44.1 Chronic obstructive pulmonary disease with (acute) exacerbation; S21.90XA Unspecified open wound of unspecified part of thorax, initial encounter; D68.59 Other primary thrombophilia; N17.9 Acute kidney failure, unspecified; S29.9XXA Unspecified injury of thorax, initial encounter; I11.0 Hypertensive heart disease with heart failure; D64.9 Anemia, unspecified; S92.912A Unspecified fracture of left toe(s), initial encounter for closed fracture; J06.9 Acute upper respiratory infection, unspecified; Z95.810 Presence of automatic (implantable) cardiac defibrillator; Z95.5 Presence of coronary angioplasty implant and graft; S20.219A Contusion of unspecified front wall of thorax, initial encounter; Z91.19 Patient's noncompliance with other medical treatment and regimen; E86.0 Dehydration; E78.5 Hyperlipidemia, unspecified; F17.210 Nicotine dependence, cigarettes, uncomplicated; G40.909 Epilepsy, unspecified, not intractable, without status epilepticus; I25.10 Atherosclerotic heart disease of native coronary artery without angina pectoris; I25.2 Old myocardial infarction; I25.5 Ischemic cardiomyopathy; Y83.9 Surgical procedure, unspecified as the cause of abnormal reaction of the patient, or of later complication, without mention of misadventure at the time of the procedure; Y92.89 Other specified places as the place of occurrence of the external cause
CPT/HCPCS: 33223; 36415; 36573; 36600; 71045; 71250; 73140; 76770; 80048; 80061; 80202; 80305; 80320; 82375; 82550; 82553; 82805; 83880; 84484; 85014; 85018; 85027; 86850; 86900; 87070; 87075; 93005; 93306; 93642; 94640; 94644; 97116; 97162; 97535; 99285; A4565; C1725; J0690; J1580; J1650; J1940; J2250; J2270; J2405; J2543; J2704; J2920; J2930; J3010; J3370; J3490; J7040; J7050; J7060; J7611; J7620; G0480

== ENCOUNTER 2019-03-16 14:54 | Emergency (ER) | payer OTHER ==
[~2019-03-16] VITALS: Ht 167.6 cm; Wt 64.0 kg
[~2019-03-16 14:54] MED LIST changes: +FURO-151 MT; -FURO80TA3 MT; +IBUP-2030 PO; +SACU1TAB MT; +SPIR25TA6 MT; +TRAM50TA3 PO
[2019-03-16] MEDS ORDERED: PIPERACILLIN SODIUM/TAZOBACTAM 4.5 G in DEXT 5% WATER 100 ML IV SCH (15:15)
[2019-03-16 16:21] LABS: BASOPHILS % 0.8 % (0.0-2.0); EOSINOPHILS % 2.5 % (0.0-5.0); HEMATOCRIT. 26.8 % (42.0-52.0); HEMOGLOBIN. 8.9 g/dL (14.0-18.0); LYMPHOCYTES % 12.3 % (20.0-50.0); MEAN CORPUSCULAR HEMOGLOBIN 27.7 pg (28.0-32.0); MEAN CORPUSCULAR VOLUME 83.3 fL (80.0-94.0); MEAN PLATELET VOLUME 8.6 fl (7.4-10.4); MONOCYTES % 13.3 % (2.0-8.0); NEUTROPHILS % 71.1 % (40.0-76.0); PLATELET 193 x1000/uL (130-400); RED BLOOD CELL COUNT 3.21 mill/uL (4.7-6.1)
[2019-03-16 16:25] LABS: CHLORIDE 106 mEq/L (98-107)
[2019-03-16] MEDS ORDERED: HYDROCODONE/ACETAMINOPHEN 5/325MG TABLET PO STA (17:09)
[2019-03-16] MEDS ORDERED: VANCOMYCIN 1 G PREMIX 200 ML IV ONE (17:15)
[2019-03-16] MEDS ORDERED: SODIUM CHLORIDE 0.9% 1000ML BAG (SEPSIS BOLUS) IV ONE (17:15)
[2019-03-16] MEDS ORDERED: ASPIRIN 81MG TABLET PO ONE (20:15)
[2019-03-16] MEDS ORDERED: NITROGLYCERIN 0.4MG TABLET SL SL ONE (20:15)
[2019-03-17 00:30] VITALS: BP 110/59
== END 2019-03-17 00:32 | disposition short-term general hospital (02) ==
LOC: ER 15:23 → CANBEDREQ 22:03 → ER 03-17 00:32
DX: T82.7XXA Infection and inflammatory reaction due to other cardiac and vascular devices, implants and grafts, initial encounter (principal); E87.2 Acidosis; Y71.3 Surgical instruments, materials and cardiovascular devices (including sutures) associated with adverse incidents; Y71.8 Miscellaneous cardiovascular devices associated with adverse incidents, not elsewhere classified; Y92.89 Other specified places as the place of occurrence of the external cause
CPT/HCPCS: 36415; 71045; 80053; 83605; 84484; 85025; 87040; 93005; 96365; 96366; 96367; 99285; J2543; J3370; J7030; J7060